=== PATIENT | female | born 2000 | race Caucasian/White ===

== ENCOUNTER 2019-05-11 21:41 | Emergency (ER) | payer OTHER ==
--- NOTE | 2019-05-11 22:10 | EDM.PDOC ---
ED HPI GENERAL MEDICAL PROBLEM - General Stated Complaint: THROWING UP BLOOD Time Seen by Provider: 05/11/19 22:07 Source of Information: Reports: Patient History Limitations: Reports: No Limitations - History of Present Illness INITIAL COMMENTS - FREE TEXT/NARRATIVE: Debbie is a 18 female with sudden onset lower abdominal pain. Associate with diarrhea,vomiting( with blood streaks). Lasting about an hour,sharp. Feels better after vomiting. No urinary symptoms.She further denies any ,or vaginal discharge or bleeding. lower abd Pain Score (Numeric/FACES): 7 - Related Data Allergies Allergy/AdvReac Type Severity Reaction Status Date / Time No Known Allergies Allergy Verified 05/11/19 22:10 Home Meds: Home Meds NK [No Known Home Meds] 05/11/19 [History] ED ROS GENERAL - Review of Systems Review Of Systems: Comprehensive ROS is negative, except as noted in HPI. ED EXAM, GI/ABD - Physical Exam Exam: See Below Exam Limited By: No Limitations General Appearance: Alert, WD/WN Neck: Normal Inspection Respiratory/Chest: No Respiratory Distress GI/Abdominal Exam: Normal Bowel Sounds, Soft, Tender. No: Distended, Guarding, Mass, Hepatomegaly Neurological: Alert, Oriented Psychiatric: Normal Affect Skin Exam: Warm Course - Vital Signs Last Recorded V/S: Last Vital Signs Temp 97.5 F 05/11/19 21:41 Pulse 90 05/11/19 21:41 Resp 16 05/11/19 21:41 BP 118/57 L 05/11/19 21:41 Pulse Ox 100 05/11/19 21:41 - Orders/Labs/Meds Orders: Active Orders 24 hr Category Date Time Status Abdomen Pelvis wo Cont [CT] Stat Exams 05/11/19 22:01 Ordered CHLAMYDIA/GC AMPLIFICATION Stat Lab 05/11/19 22:49 Ordered CULTURE URINE [RM] Stat Lab 05/11/19 22:46 Ordered Labs: Laboratory Tests 05/11/19 05/11/19 05/11/19 Range/Units 22:09 22:09 22:15 WBC 9.6 (4.5-12.0) X10-3/uL RBC 4.63 (3.23-5.20) x10(6)uL Hgb 13.1 (11.5-15.5) g/dL Hct 38.8 (30.0-51.3) % MCV 83.7 (80-96) fL MCH 28.4 (27.7-33.6) pg MCHC 33.9 (32.2-35.4) g/dL RDW 12.9 (11.5-15.5) % Plt Count 188 (125-369) X10(3)uL MPV 10.0 (7.4-10.4) fL Neut % (Auto) 75.5 (46-82) % Lymph % (Auto) 16.1 (13-37) % [place] % (Auto) 4.7 (4-12) % Eos % (Auto) 1 (1.0-5.0) % Baso % (Auto) 3 H (0-2) % Neut # (Auto) 7.2 (1.6-8.3) # Lymph # (Auto) 1.5 (0.6-5.0) # [place] # (Auto) 0.5 (0.0-1.3) # Eos # (Auto) 0.1 (0.0-0.8) # Baso # (Auto) 0.3 H (0.0-0.2) # Urine Color Yellow (YELLOW) Urine Appearance Cloudy (CLEAR) Urine pH 6.5 (5.0-6.5) Ur Specific [place] 1.015 (1.010-1.025) Urine Protein Trace (NEGATIVE) mg/dL Urine Glucose (UA) Normal (NORMAL) mg/dL Urine Ketones 15 H (NEGATIVE) mg/dL Urine Occult Blood Negative (NEGATIVE) Urine Nitrite Negative (NEGATIVE) Urine Bilirubin Small H (NEGATIVE) Urine Urobilinogen 4 H (NEGATIVE) mg/dL Ur Leukocyte Esterase Small H (NEGATIVE) Urine RBC 0-5 (0-5) Urine WBC 5-10 H (0-5) Ur Squamous Epith Cells Few H (NS,R,O) Amorphous Sediment Moderate Urine Bacteria Few H (NS) Urine Mucus Moderate H (NS) Urine HCG, Qual Negative (NEGATIVE) Departure - Departure Time of Disposition: 22:49 Disposition: Home, Self-Care 01 Condition: Good Clinical Impression: Gastroenteritis, Abdominal pain - Discharge Information - Problem List & Annotations (1) Abdominal pain SNOMED Code(s): 94830914 Code(s): R10.9 - UNSPECIFIED ABDOMINAL PAIN Status: Acute Current Visit: Yes Qualifiers: Abdominal location: lower abdomen, unspecified Qualified Code(s): R10.30 - Lower abdominal pain, unspecified - Problem List Review Problem List Initiated/Reviewed/Updated: Yes - My Orders Last 24 Hours: My Active Orders 05/11/19 22:01 Abdomen Pelvis wo Cont [CT] Stat 05/11/19 22:46 CULTURE URINE [RM] Stat 05/11/19 22:49 CHLAMYDIA/GC AMPLIFICATION Stat - Assessment/Plan Last 24 Hours: My Active Orders 05/11/19 22:01 Abdomen Pelvis wo Cont [CT] Stat 05/11/19 22:46 CULTURE URINE [RM] Stat 05/11/19 22:49 CHLAMYDIA/GC AMPLIFICATION Stat Plan: CBC was normal UA was borderline. GC is pending. CT abd/pelvis showed possible ovarian cyst,1.8 cm. Otherwise normal. Patient declined pain med.This is possibly Acute GE. As well, I entertained a diagnosis of PID,but given sudden onset,and lack of vaginal symptoms,I elected no further treatment. I advised her to see PCP tomorrow. Return to ED with any worsening symptoms.
[2019-05-14 14:08] LABS: CHLAMYDIA TRACHOMATIS, NAA Negative (Negative); NEISSERIA GONORRHOEAE, NAA Negative (Negative)
== END 2019-05-11 22:57 | disposition home or self-care (01) ==
LOC: FB.ED 21:41
DX: K52.9 Noninfective gastroenteritis and colitis, unspecified (principal)
CPT/HCPCS: 36415; 74176; 81001; 81025; 85025; 87086; 87491; 87591; 99284-25